=== PATIENT | female | born 1980 | race Caucasian/White ===

== ENCOUNTER 2021-02-04 10:46 | Outpatient (REF) | payer BC, SELFPAY ==
[2021-02-04 14:14] LABS: Alanine Aminotransferase 33 U/L (0-31); Albumin Level 4.3 g/dL (3.5-5.0); Alkaline Phosphatase 56 U/L (39-117); Anion Gap 13 (12-20); Aspartate Amino Transferase 25 U/L (5-31); Bilirubin Total 0.5 mg/dL (0.0-1.0); Blood Urea Nitrogen 10 mg/dL (9-16); Calcium 9.3 mg/dL (8.4-10.2); Carbon Dioxide 27 mmol/L (22-29); Chloride 104 mmol/L (96-108); Cholesterol 217 mg/dL; Estimated Glomerular Filt Rate > 60; Glucose Fasting 102 mg/dL (60-99); HDL Cholesterol 48 mg/dL; LDL Cholesterol Calculated 145 mg/dl; Potassium 4.3 mmol/L (3.3-5.1); Sodium 140 mmol/L (135-145); Triglycerides 124 mg/dL
[2021-02-04 14:35] LABS: TSH reflex Free T4 0.54 uIU/mL (0.32-4.0)
== END 2021-02-04 10:47 | disposition home or self-care (01) ==
LOC: HO.WFDLDS 10:46
PROVIDERS: Visit Provider Family Medicine
DX: Z00.00 Encounter for general adult medical examination without abnormal findings (principal)
CPT/HCPCS: 36415; 80053; 80061; 84443

== ENCOUNTER 2021-02-10 08:06 | Outpatient (REF) | payer BC, SELFPAY ==
--- NOTE | ~2021-02-10 | MM_ITS ---
EXAMINATION: MM SCREENING DIGITAL BREAST TOMOSYNTHESIS, BILATERAL CLINICAL INFORMATION: Screening. Asymptomatic. The lifetime risk of breast cancer based on the Tyrer-Cuzick Model is 22.8%. Additional annual screening with breast MRI may be of benefit in women with a Score of 20% or greater. COMPARISON: Mammography: None TECHNIQUE: Digital breast tomosynthesis is performed in both the craniocaudal and mediolateral oblique views along with computer-aided detection (CAD). Synthesized 2D images are generated from the tomosynthesis. FINDINGS: The breasts are extremely dense, which lowers the sensitivity of mammography (ACR BI-RADS breast composition Category d). There are no significant masses, abnormal calcifications, or other abnormalities. MM/MM tomosynthesis screening BI IMPRESSION: There are no significant changes from prior study. ASSESSMENT: BI-RADS 1: Negative RECOMMENDATION: Routine annual mammography screening. This patient's information was entered into a reminder system with a target due date for their next mammogram.
== END 2021-02-10 08:07 | disposition home or self-care (01) ==
LOC: HO.MAMMO 08:06
PROVIDERS: PCP Family Medicine; Visit Provider Family Medicine
DX: Z12.31 Encounter for screening mammogram for malignant neoplasm of breast (principal)
CPT/HCPCS: 77063; 77067

== ENCOUNTER 2021-07-06 07:58 | Outpatient (REF) | payer BC, SELFPAY ==
[2021-07-06 09:04] LABS: Alanine Aminotransferase 15 U/L (0-31); Albumin Level 4.4 g/dL (3.5-5.0); Alkaline Phosphatase 53 U/L (39-117); Anion Gap 12 (12-20); Aspartate Amino Transferase 16 U/L (5-31); Blood Urea Nitrogen 10 mg/dL (9-16); Calcium 9.6 mg/dL (8.4-10.2); Carbon Dioxide 26 mmol/L (22-29); Chloride 104 mmol/L (96-108); Cholesterol 210 mg/dL; Estimated Glomerular Filt Rate > 60; Glucose Fasting 102 mg/dL (60-99); HDL Cholesterol 53 mg/dL; LDL Cholesterol Calculated 127 mg/dl; Potassium 4.1 mmol/L (3.3-5.1); Sodium 138 mmol/L (135-145); Total Protein 7.2 g/dL (6.5-8.0); Triglycerides 150 mg/dL
== END 2021-07-06 07:59 | disposition home or self-care (01) ==
LOC: HO.LAB 07:58
PROVIDERS: PCP Family Medicine; Visit Provider Family Medicine
DX: Z00.00 Encounter for general adult medical examination without abnormal findings (principal); R74.01 Elevation of levels of liver transaminase levels; E78.00 Pure hypercholesterolemia, unspecified
CPT/HCPCS: 36415; 80053; 80061

== ENCOUNTER 2021-11-08 13:57 | Outpatient (REF) | payer BC, SELFPAY ==
--- NOTE | ~2021-11-08 | XR_ITS ---
EXAMINATION: XR HAND, LEFT CLINICAL INFORMATION: Contusion of left hand COMPARISON: None TECHNIQUE: PA, lateral, and oblique views of the left hand. FINDINGS: The bones and soft tissues are normal. No fracture. Alignment is anatomic. Joint spaces are maintained. No erosions or soft tissue calcifications. XR/XR hand LT min 3V IMPRESSION: Unremarkable left hand.
== END 2021-11-08 13:58 | disposition home or self-care (01) ==
LOC: HO.HMGCX 13:57
PROVIDERS: PCP Family Medicine; Visit Provider Internal Medicine
DX: S60.222A Contusion of left hand, initial encounter (principal)
CPT/HCPCS: 73130

== ENCOUNTER 2022-01-09 10:50 | Outpatient (REF) | payer BC, SELFPAY ==
--- NOTE | ~2022-01-09 | XR_ITS ---
EXAMINATION: XR HAND, LEFT CLINICAL INFORMATION: Left hand pain. COMPARISON: None TECHNIQUE: PA, lateral, and oblique views of the left hand. An indicator arrow points to the fourth distal phalanx. FINDINGS: There is a minimally displaced fracture at the dorsal base of the distal phalanx of the fourth digit extending into the distal interphalangeal joint space. The middle phalanx is intact. Mild adjacent soft tissue swelling is seen. The remainder the digits are intact. XR/XR hand LT min 3V IMPRESSION: Acute, minimally displaced intertrochanteric fracture at the dorsal base of the distal phalanx of the fourth digit.
== END 2022-01-09 10:51 | disposition home or self-care (01) ==
LOC: HO.HOSX 10:50
PROVIDERS: Visit Provider Orthopaedic Surgery
DX: M79.642 Pain in left hand (principal)
CPT/HCPCS: 73130

== ENCOUNTER 2022-01-16 05:49 | Day surgery (SDC) | payer BC, SELFPAY ==
--- NOTE | 2022-01-12 12:35 | HO.ANESPROP2 ---
Documented by User: Pat Charles NP 01/12/22 12:36 HPI - Anesthesia Eval Consult details Narrative: 41yo F for Left Ring Finger P3 FX ORIF PMFSH Active Problems Active Problems: All Active Problems (Updated 01/10/22 @ 15:44 by Yvonne Child MD) Fracture of distal phalanx of left ring finger (Acute) Injury of left ring finger (Acute) Contusion of left hand (Acute) Neoplasm of uncertain behavior of skin (Acute) Lesion of right ear (Acute) Elevated alanine aminotransferase (ALT) level (Acute) Hypercholesterolemia (Acute) Elevated fasting glucose (Acute) Screening for cervical cancer (Acute) Annual physical exam (Acute) Acute adjustment disorder (Acute) Breast cancer screening by mammogram (Acute) Migraine (Acute) Seasonal allergies (Acute) Lymphadenopathy (Acute) Laboratory exam ordered as part of routine general medical examination (Acute) Past Medical History Medical History (Updated 01/10/22 @ 15:44 by Yvonne Child MD) Vertigo Social History Social History (Updated 01/10/22 @ 14:07 by Jeni Trivedi [facility]) Housing: House Patient Tobacco Use Status: Never used Tobacco e-Cigarette/Vaping Use: Never Used Second Hand Smoke Exposure: No Advance Directives: No Advance Directives Information Provided: Yes service: No Current occupational status: employed 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 Current occupational exposures/hazards: No Cognitive needs: No Hearing needs: No Vision needs: No Meds Allergies Allergy/AdvReac Type Severity Reaction Status Date / Time sulfamethoxazole Allergy Unknown UNKNOWN Verified 01/10/22 14:06 [From Bactrim] trimethoprim [From Bactrim] Allergy Unknown UNKNOWN Verified 01/10/22 14:06 Home Medications Medication Instructions Recorded Confirmed Last Taken Type cetirizine 10 mg tablet (Zyrtec) 10 mg PO DAILY PRN 11/08/21 Unknown History Exam Exam Date and Time: January 12, 2022 1235 Pertinent Lab Results Pertinent Lab Results: Laboratory Tests 07/06/21 08:08 Sodium 138 Potassium 4.1 Chloride 104 Carbon Dioxide 26 BUN 10 Creatinine 0.96 Assessment and Plan Assessment Anesthesia Assessment: Chart Reviewed Documented by User: Jak Kent MD 01/16/22 17:53 [facility] Past Medical History Medical History (Updated 01/10/22 @ 15:44 by Yvonne Child MD) Vertigo Functional capacity: independent ambulation Family History Family history of problems with anesthesia: No Surgical History History of Problems with Anesthesia: No Social History Social History (Updated 01/10/22 @ 14:07 by Jeni Trivedi [facility]) Housing: House Patient Tobacco Use Status: Never used Tobacco e-Cigarette/Vaping Use: Never Used Second Hand Smoke Exposure: No Advance Directives: No Advance Directives Information Provided: Yes service: No Current occupational status: employed 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 Current occupational exposures/hazards: No Cognitive needs: No Hearing needs: No Vision needs: No Meds Allergies Allergy/AdvReac Type Severity Reaction Status Date / Time sulfamethoxazole Allergy Unknown UNKNOWN Verified 01/10/22 14:06 [From Bactrim] trimethoprim [From Bactrim] Allergy Unknown UNKNOWN Verified 01/10/22 14:06 Home Medications Medication Instructions Recorded Confirmed Last Taken Type cetirizine 10 mg tablet (Zyrtec) 10 mg PO DAILY PRN 11/08/21 Unknown History Exam Airway Mallampati Class: III TM Dist: >3cm Neck ROM: Full Loose/Missing/Broken Teeth: Yes (Fillings) Heart: S1,S2 Lungs: b/l breath sounds Assessment and Plan Assessment Anesthesia Assessment: Anesthesia Plan Discussed Final Anesthetic Review Family History of Problems with Anesthesia: No History of Problems with Anesthesia: No NPO: Yes ASA Class: II Final Preanesthetic Review: Meds/Allgs Chart Reviewed, Consent Obtained/Reviewed and Anes Risks/Benef Reviewed Patient Risk: Intermediate Procedure Risk: Intermediate Anesthetic Plan Anesthetic Plan: MAC: Disposition: Standard PACU
[2022-01-16] VITALS (11 sets, daily range): BP systolic 104–142; BP diastolic 69–96; PULSE 71–100; RESP 16–18; TEMP 36.2–36.5; O2SAT 94–100; BMI 27.3
--- NOTE | ~2022-01-16 | FL_ITS ---
EXAMINATION: XR FLUOROSCOPY WITH IMAGES CLINICAL INFORMATION: Minimally displaced fracture dorsal base of distal phalanx fourth digit COMPARISON: Right hand 01/10/2022 TECHNIQUE: Fluoroscopy Supervised By: Dr. Danyell Russell Fluoroscopy Time: 29.48 seconds. Cumulative Dose: 0.6585 mGy. DAP: 0.0398 Gycm2. Images: 5. FINDINGS: There is a solitary pin stabilizing the DIP joint fourth digit. Dorsally displaced fracture is again visualized along the DIP joint fourth digit. FL/FL guidance in OR IMPRESSION: Stabilized DIP joint fourth digit with a solitary pin and unchanged dorsal acute fracture at the base of distal phalanx fourth digit.
[2022-01-16 06:27] LABS: UPreg QC Valid YES; Urine Pregnancy NEGATIVE (NEGATIVE)
[2022-01-16] MEDS: Lactated Ringers 1,000 ML 100 ML IVCONT (06:28)
--- NOTE | 2022-01-16 09:44 | P.OP_ITS ---
Operative Note Operative Note Date of Service: 01/16/22 Narrative: Operative Note Narrative: Preop diagnosis: Left ring finger distal phalanx base fracture Postop diagnosis: Same Procedure: left ring finger distal phalanxFracture open reduction internal fixation Surgeon: Yvonne Child MD Anesthesia: General Anesthesia Findings: fracture of dorsal base of distal phalanx Implants: 0.045 K-wire x1 Tourniquet time: 0 minutes, finger tourniquet used for fewer then 30 minutes EBL: 5.0 ml Specimen: none Drains: None Complications: None Disposition: Brought to the recovery room in stable condition Plan: Follow-up in 10-14 days for wound check, suture removal and to check pathology Indications: The patient is a 41 year old woman with fracture through the dorsal base of the left ring finger distal phalanx about 2 months ago with a significant mallet finger . The risks and benefits of operative treatment, including but not limited to risk of damage to blood vessels, nerves, tendons, infection, recurrence, persistent pain or numbness, incomplete resolution of preoperative symptoms, or need for further surgery were discussed with the patient and they wished to proceed with surgery. Procedure: Once consent was obtained patient was brought back to the operating suite and placed in the operating table in a supine position. . Perioperative antibiotics and anesthesia was administered by the anesthesia team. A tourniq uet was applied to the proximal aspect of the left upper extremity and the limb was prepped and draped in a standard surgical fashion. a finger tourniquet was applied to the base of the patient's left ring finger for a total time of few or than 30 minutes. A longitudinal E oriented S shaped incision was made over the dorsal aspect of the patient's left ring finger distal phalanx and D IP joint. The incision was made through the skin to the subcutaneous tissues using a 15. Blade. Careful dissection was then made down to the level of the extensor mechanism using tenotomy scissors. The extensor tendon was found to have healed directly over the fracture at the dorsal base of the distal phalanx. However she was noted to have a mallet finger. The distal phalanx was reduced to an extended position and a 0.045 K-wire was passed retrograde through the tip of the distal phalanx. This was then advanced proximally and retrograde across the D IP joint with the D IP joint held in extension into the shaft of the middle phalanx. Once satisfied with the position of the D IP joint and of this K-wire the pin was bent cut short and had a pin cap applied. I then use some 4-0 Vicryl to draw the bony fragment and its attached extensor mechanism distally. Once satisfied with this on fluoroscopic images final images were obtained. Finger tourniquet was removed and the wound irrigated with normal saline. The skin edges were then reapproximated with some 5 0 Prolene suture. A digital block was performed using some 0.5% plain ropivacaine. A sterile dressing and a volar splint were then applied. The patient appears to have tolerated the procedure well and with no complications. All digits were well vascularized conclusion of the case.
--- NOTE | 2022-01-16 09:44 | MHC.SHP ---
Pre-Procedural Eval Section A Date of Service: 01/16/22 The patient is an INPATIENT: No Changes since office visit: No Cold of Flu in the past 2 weeks, No New Medical Problems, No Changes in Medication and No Patient answered all questions The History & Physical has been completed within 30 days and I have reviewed it.: Yes Section B Chief Complaint: Mallet finger of left finger(s) Allergies: Allergies Allergy/AdvReac Type Severity Reaction Status Date / Time sulfamethoxazole Allergy Unknown UNKNOWN Verified 01/10/22 14:06 [From Bactrim] trimethoprim [From Bactrim] Allergy Unknown UNKNOWN Verified 01/10/22 14:06 Plan I have reviewed the history and physical and performed a pertinent physical examination on my patient. No changes have occurred unless specified.
== END 2022-01-16 12:10 | disposition home or self-care (01) ==
PROVIDERS: Nurse Practitioner; PCP Family Medicine; Visit Provider Orthopaedic Surgery
PROC: (CPT 26765; principal; 2022-01-16 07:30)
DX: S62.635A Displaced fracture of distal phalanx of left ring finger, initial encounter for closed fracture (principal); M20.012 Mallet finger of left finger(s); W20.8XXA Other cause of strike by thrown, projected or falling object, initial encounter; Y93.61 Activity, american tackle football; Y92.9 Unspecified place or not applicable; Y99.8 Other external cause status; R42 Dizziness and giddiness; Z88.2 Allergy status to sulfonamides; Z88.8 Allergy status to other drugs, medicaments and biological substances
CPT/HCPCS: 26765; 81025; J0690; J1100; J1170; J2250; J2405; J2550; J2795; J3010

== ENCOUNTER 2022-01-30 11:07 | Outpatient (REF) | payer BC, SELFPAY | END 2022-01-30 11:08 | disposition home or self-care (01) | LOC: HO.HOSX 11:07 | PROVIDERS: Visit Provider Orthopaedic Surgery | DX: Z13.89 Encounter for screening for other disorder (principal) ==

== ENCOUNTER 2022-01-31 10:24 | Outpatient (REF) | payer BC, SELFPAY | END 2022-01-31 10:25 | disposition home or self-care (01) | LOC: HO.HOSX 10:24 | PROVIDERS: Visit Provider Orthopaedic Surgery | DX: Z13.89 Encounter for screening for other disorder (principal) ==

== ENCOUNTER 2022-02-01 16:21 | Outpatient (REF) | payer BC, SELFPAY ==
--- NOTE | ~2022-02-01 | XR_ITS ---
EXAMINATION: XR HAND, LEFT CLINICAL INFORMATION: Left hand pain COMPARISON: 01/10/2022 TECHNIQUE: PA, lateral, and oblique views of the left hand. FINDINGS: A K wire bridges the 4th DIP joint. The joint is narrowed. Again demonstrated is ossification at the dorsal lip of the base of the distal phalanx. No additional findings. XR/XR hand LT min 3V IMPRESSION: K wire bridges the 4th DIP joint. The joint is narrowed.
== END 2022-02-01 16:22 | disposition home or self-care (01) ==
LOC: HO.HOSX 16:21
PROVIDERS: Visit Provider Orthopaedic Surgery
DX: M79.642 Pain in left hand (principal)
CPT/HCPCS: 73130

== ENCOUNTER 2022-02-03 10:55 | Outpatient (REF) | payer BC, SELFPAY ==
[2022-02-08 11:58] LABS: HPV mRNA E6/E7 rflx Not Detected (Not Detected)
== END 2022-02-03 10:56 | disposition home or self-care (01) ==
LOC: HO.LNP 10:55
PROVIDERS: Visit Provider Advanced Practice Midwife
DX: Z01.419 Encounter for gynecological examination (general) (routine) without abnormal findings (principal); Z11.51 Encounter for screening for human papillomavirus (HPV)
CPT/HCPCS: 87624; 88142

== ENCOUNTER 2022-02-16 08:15 | Outpatient (REF) | payer BC, SELFPAY ==
--- NOTE | ~2022-02-16 | MM_ITS ---
EXAMINATION: MM SCREENING DIGITAL BREAST TOMOSYNTHESIS, BILATERAL CLINICAL INFORMATION: Screening. Asymptomatic. The lifetime risk of breast cancer based on the Tyrer-Cuzick Model is 23.2%. Additional annual screening with breast MRI may be of benefit in women with a score of 20% or greater. COMPARISON: Mammography: 02/10/2021 TECHNIQUE: Digital breast tomosynthesis was performed in both the craniocaudal and mediolateral oblique views along with computer-aided detection (CAD). Synthesized 2D images were generated from the tomosynthesis. FINDINGS: The breasts are extremely dense, which lowers the sensitivity of mammography (ACR BI-RADS breast composition Category d). There is a stable parenchymal pattern of the right breast. Within the deep medial aspect of the left breast on the craniocaudal view, there is a 6 mm density approximately 11 cm from the nipple which was not seen on the prior study. Spot compression view and possible ultrasound are recommended. By tomography, this should lie within the inferior aspect of the left breast. On the mediolateral oblique view, there is a density measuring approximately 5 mm in diameter 15 cm from the nipple, which may represent a lymph node, but no definite fatty cleft is seen and this was not noted on the previous study. Recommend spot compression view and possible ultrasound. MM/MM tomosynthesis screening BI IMPRESSION: Left breast findings for further evaluation as described. ASSESSMENT: BI-RADS 0: Incomplete - Need Additional Imaging Evaluation RECOMMENDATION: 1. Additional views of the left breast. 2. Targeted ultrasound if warranted after review of the additional views. 3. Radiology department staff will contact the patient for additional imaging.
== END 2022-02-16 08:16 | disposition home or self-care (01) ==
LOC: HO.MAMMO 08:15
PROVIDERS: PCP Family Medicine; Visit Provider Family Medicine
DX: Z12.31 Encounter for screening mammogram for malignant neoplasm of breast (principal)
CPT/HCPCS: 77063; 77067

== ENCOUNTER 2022-02-22 | Outpatient (REF) | payer BC, SELFPAY ==
--- NOTE | ~2022-02-22 | XR_ITS ---
EXAMINATION: XR HAND, LEFT CLINICAL INFORMATION: Pain COMPARISON: X-ray 02/02/2022, 01/10/2022 TECHNIQUE: PA, lateral, and oblique views of the left hand. FINDINGS: Redemonstrated is a K wire bridging the fourth DIP joint. Redemonstrated is a small ossification at the dorsal aspect of the base of the distal phalanx. No new acute fractures seen. XR/XR hand LT min 3V IMPRESSION: K wire bridges the fourth DIP joint. Appearance similar as compared to previous.
== END 2022-02-22 00:01 | disposition home or self-care (01) ==
LOC: HO.HOSX
PROVIDERS: Visit Provider Orthopaedic Surgery
DX: Z13.89 Encounter for screening for other disorder (principal)

== ENCOUNTER → 2022-02-22 10:20 | Outpatient (BNVA) | payer BC, SELFPAY | PROVIDERS: PCP Family Medicine; Visit Provider Orthopaedic Surgery | DX: S62.635D Displaced fracture of distal phalanx of left ring finger, subsequent encounter for fracture with routine healing (principal) | CPT/HCPCS: 73130 ==

== ENCOUNTER 2022-02-23 08:53 | Outpatient (REF) | payer BC, SELFPAY ==
--- NOTE | ~2022-02-23 | MM_ITS ---
EXAMINATION: MM DIAGNOSTIC DIGITAL BREAST TOMOSYNTHESIS, LEFT US DIAGNOSTIC ULTRASOUND BREAST, LEFT CLINICAL INFORMATION: Recall from screening for 2 findings, small asymmetric density posterior medial left breast on CC view and nodular density left axilla. COMPARISON: Mammography: 02/16/2022, 02/10/2021 (baseline). TECHNIQUE: Digital breast tomosynthesis is performed. 2D images are generated from the tomosynthesis. The following views are obtained: Exaggerated left CC, spot left CC x3, spot left MLO. Ultrasound left breast is targeted to the posterior medial breast 6:00 through 11:00 position. In addition, ultrasound of the axilla and posterior upper outer quadrant is performed. Grayscale imaging and color Doppler are performed without and with harmonics. FINDINGS: The breasts are heterogeneously dense, which may obscure small masses (ACR BI-RADS breast composition Category c). Additional spot view left axilla shows scattered nodes with benign rani architecture. The nodule for follow-up was beyond field of view on the initial baseline exam 2020. No suspicious finding. Additional views posterior medial left breast show benign-appearing asymmetric density possibly related to sternalis muscle. This area is also beyond the [id number] on the initial baseline mammography 2020. Ultrasound left breast upper outer quadrant show scattered incidental nodes with normal rani architecture. No cystic or solid mass or architectural abnormality. Ultrasound posterior medial left breast shows no cystic or solid mass or architectural abnormality. The chest wall soft tissues appear normal. Results are discussed with the patient at time of visit. There is no suspicious finding. The axilla is unremarkable. The finding posterior medial left breast was previously beyond field of view and may represent sternalis muscle artifact. As a precaution, short interval follow-up left mammography will be performed in 6 months. MM/MM tomosynthesis added views L IMPRESSION: -Unremarkable axilla and posterior upper outer left breast. -Benign-appearing asymmetric density posterior medial breast on CC view, possibly sternalis muscle. -No suspicious finding on targeted ultrasound. ASSESSMENT: BI-RADS 3: Probably Benign RECOMMENDATION: Diagnostic left mammography in 6 months. This patient's information was entered into a reminder system with a target due date for their next mammogram.
== END 2022-02-23 08:54 | disposition home or self-care (01) ==
LOC: HO.MAMMO 08:53
PROVIDERS: PCP Family Medicine; Visit Provider Family Medicine
DX: R92.2 Inconclusive mammogram (principal)
CPT/HCPCS: 76642; 77061; 77065

== ENCOUNTER 2022-08-25 13:54 | Outpatient (REF) | payer BC, SELFPAY ==
--- NOTE | ~2022-08-25 | MM_ITS ---
EXAMINATION: MM DIAGNOSTIC DIGITAL BREAST TOMOSYNTHESIS, LEFT CLINICAL INFORMATION: Density deep medial aspect left breast. The lifetime risk of breast cancer based on the Tyrer-Cuzick Model is 23%. COMPARISON: 02/23/2022 and studies dating back to 02/10/2021. TECHNIQUE: Digital breast tomosynthesis is performed in both the craniocaudal and mediolateral oblique views along with computer-aided detection (CAD). Synthesized 2D images are generated from the tomosynthesis. FINDINGS: The breasts are extremely dense, which lowers the sensitivity of mammography (ACR BI-RADS breast composition Category d). There are no significant masses, abnormal calcifications, or other abnormalities. The density about the deep medial aspect of the left breast is not identified. The density about the axilla is stable and has the appearance of a probable lymph node. Results are provided to the patient at time of visit by the technologist. MM/MM tomosynthesis diagnostic LT IMPRESSION: There are no significant changes from prior study. ASSESSMENT: BI-RADS 3: Probably Benign RECOMMENDATION: Diagnostic mammography at time of next annual exam, due in 6 months. This patient's information was entered into a reminder system with a target due date for their next mammogram.
== END 2022-08-25 13:55 | disposition home or self-care (01) ==
LOC: HO.MAMMO 13:54
PROVIDERS: PCP Family Medicine; Visit Provider Family Medicine
DX: R92.2 Inconclusive mammogram (principal)
CPT/HCPCS: 77061; 77065

== ENCOUNTER 2023-02-09 08:54 | Outpatient (AMB) | payer BC, SELFPAY ==
[2023-02-09 09:03] VITALS: BP 132/92; BMI 27.6
--- NOTE | 2023-02-09 09:03 | MHC.OFFVIS ---
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 Patient states she was told last year that she doesn't need a vaginal exam. 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 Her primary care provider is now Dr. Marquez because her previous one changed positions. She said she has seen him and discussed her elevated blood pressure and is working on all of the recommendations and checking her blood pressure at home and trying to eat well and she and her family do not add much salt to food and she and her are trying to make sure they get enough exercise. 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 She sometimes wonders if she is princess menopausal in that she used to have extremely regular periods almost to the hour and they have started to be either a little bit late or little bit early sometimes she does get hot flashes. She has absolutely no worries about STIs and declines an exam and she has never had an abnormal Pap smear and her last 1 was negative last year with negative HPV. She is getting every 6 month follow-up mammograms at this point because there was 1 tiny area in her right lower breast that was being watched. But it was not deemed to be sufficient for any biopsy but her next mammogram is on the of this month. She herself had consulted with Dr. Lopez in the past because of her mother's breast cancer. Her mother has breast cancer but apparently it was not the type that was genetic and she believes her mother comes here for follow-up with Dr. Wylie and if there is anything to follow-up on that is who she would see. She works full-time she and her have two teenage daughters aged 16 and 13 who are doing well. 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 Current occupational exposures/hazards: No Sexual orientation: Straight/Heterosexual Gender identity: Female Cognitive needs: No Hearing needs: No Vision needs: No Female Reproductive History Menstrual Age of Menarche: 11 Duration of menses: other Date of last menstrual period: 02/04/23 control method: none and permanent sterilization Permanent Sterilization: Vasectomy Total pregnancies: 2 Full term: 2 Number of Living Children: 2 Date of last pap smear: 02/06/22 (negative) History of abnormal pap smear: No Date of Mammogram: 08/25/22 Physical Exam Vital Signs: Last Vital Signs BP 132/92 H 02/09/23 09:03 BMI result Body Mass Index 27.6 Const General: healthy appearing, comfortable, no acute distress, well developed and alert Nutritional Appearance: average body habitus Orientation/consciousness: patient oriented x3 Limitations: no limitations HEENT Head: Yes normocephalic Neck Neck: Yes normal visual inspection Thyroid: Thyroid normal Chest Chest palpation & inspection: normal inspection of the chest Breast/axilla inspection: normal inspection of the breasts and normal inspection of the axillae Breast/axilla palpation: normal palpation of the breasts and normal palpation of the axillae Resp Effort & Inspection: normal respiratory effort GI Inspection: Yes normal to inspection, No Abdominal wall edema and No distended Palpation (GI): Soft to palpation and nontender External Female Exam: normal external appearance Neuro General: patient oriented x3 Assessment & Plan Assessment & Plan (1) Cervical cancer screening: Comment: 02/03/2022 Pap is negative with negative HPV. Code(s): Z12.4 - Encounter for screening for malignant neoplasm of cervix (2) Well woman exam (no gynecological exam): Code(s): Z00.00 - Encounter for general adult medical examination without abnormal findings (3) Family history of breast cancer in first degree relative: Comment: Currently getting Q 6 month mammograms... Code(s): Z80.3 - Family history of malignant neoplasm of breast (4) Elevated blood pressure reading: Code(s): R03.0 - Elevated blood-pressure reading, without diagnosis of hypertension Plan -----Discussed in this visit the following: healthy balanced diet, regular and consistent exercise, getting recommended health screens, doing the best she can for her particular health concerns, kegel exercises, pap smear screening and followup recommendations, mammography screening and SBE, normal changes in cycles in her life stage--- . Reviewed her breast cancer risk and screening and she is going to follow what ever advice she is given after the mammogram discussed that if there were anything abnormal she probably would be referred to Dr. Wylie who she believes her mother goes to. She does breast exam herself. She and the family are working towards best health with healthy eating and minimal salt and exercise and healthy activity> her next Pap smear will be 5 years from the last 1. Discussed trying to moderate weight and that will possibly help Blood pressure as well.. Also reviewed that while periods becoming slightly more irregular may be a sign of princess menopausal symptoms it is more likely a reflection of the weight gain over time even though it is subtle and that losing weight may help with that as well. Discussed the range of princess menopausal symptoms and what to expect going forward. We will see her in 1 year. Coding Level of Care Code Est Pt Prev Care 40-64y(57854) Diagnoses Cervical cancer screening Z12.4 Well woman exam (no gynecological exam) Z00.00 Family history of breast cancer in first degree relative Z80.3 Elevated blood pressure reading R03.0
== END 2023-02-09 09:45 | disposition home or self-care (01) ==
LOC: HO.HWS 08:54
PROVIDERS: PCP Family Medicine; Visit Provider Advanced Practice Midwife
DX: Z01.419 Encounter for gynecological examination (general) (routine) without abnormal findings (principal); Z80.3 Family history of malignant neoplasm of breast; R03.0 Elevated blood-pressure reading, without diagnosis of hypertension
CPT/HCPCS: 99396

== ENCOUNTER → 2023-02-09 08:54 | Outpatient (BNVA) | payer BC, SELFPAY | PROVIDERS: PCP Family Medicine; Visit Provider Advanced Practice Midwife ==

== ENCOUNTER 2023-02-23 09:26 | Outpatient (REF) | payer BC, SELFPAY ==
--- NOTE | ~2023-02-23 | MM_ITS ---
EXAMINATION: MM SCREENING DIGITAL BREAST TOMOSYNTHESIS, BILATERAL CLINICAL INFORMATION: Six-month follow-up for nodular asymmetry far posterior far medial left breast, followed since 02/16/2022. COMPARISON: Mammography: 08/25/2022, 02/23/2022, 02/16/2022. TECHNIQUE: Digital breast tomosynthesis is performed in both the craniocaudal and mediolateral oblique views along with computer-aided detection (CAD). Synthesized 2D images are generated from the tomosynthesis. In addition a CC exaggerated medially was performed. FINDINGS: The breasts are heterogeneously dense, which may obscure small masses (ACR BI-RADS breast composition Category c). The small nodular oval asymmetry in the far medial far posterior left breast cannot definitively be imaged in full due to its far posterior position, although is stable in size and morphology when compared with prior exams, and is probably benign. Mammographic follow-up recommended in one year. Otherwise, there are no suspicious masses, suspicious grouped calcifications, or areas of architectural distortion in either breast. The parenchymal pattern is stable from prior exams. Stable benign appearing axillary lymph nodes. No skin changes. MM/MM tomosynthesis screening BI IMPRESSION: No mammographic evidence of malignancy in either breast. Small nodular oval asymmetry in the far medial far posterior left breast is probably benign, and 1 year follow-up recommended. No suspicious findings in the right breast. ASSESSMENT: BI-RADS BI-RADS 3 - Probably benign finding(s) - 12 month follow-up suggested RECOMMENDATION: 12 month diagnostic follow up This examination should not preclude the clinical evaluation of a suspicious palpable abnormality. This patient's information was entered into a reminder system with a target due date for their next mammogram.
== END 2023-02-23 09:27 | disposition home or self-care (01) ==
LOC: HO.MAMMO 09:26
PROVIDERS: PCP Family Medicine; Visit Provider Family Medicine
DX: Z12.31 Encounter for screening mammogram for malignant neoplasm of breast (principal)
CPT/HCPCS: 77063; 77067

== ENCOUNTER → 2023-02-23 09:30 | Outpatient (BNV) | payer BC, SELFPAY | PROVIDERS: PCP Family Medicine; Visit Provider Radiology Diagnostic Radiology | DX: Z12.31 Encounter for screening mammogram for malignant neoplasm of breast (principal) | CPT/HCPCS: 77063; 77067 ==

== ENCOUNTER 2024-02-21 09:21 | Outpatient (REF) | payer BC, SELFPAY ==
--- NOTE | ~2024-02-21 | MM_ITS ---
EXAMINATION: MM DIAGNOSTIC DIGITAL BREAST TOMOSYNTHESIS, BILATERAL CLINICAL INFORMATION: Two-year follow-up for asymmetry in the medial left breast far posterior depth only seen on CC view without prior sonographic correlate. COMPARISON: Mammography: Comparison is made with relevant prior exams. TECHNIQUE: Digital breast mammography with tomosynthesis is performed in both the craniocaudal and mediolateral oblique views along with computer-aided detection (CAD). FINDINGS: The breasts are heterogeneously dense, which may obscure small masses (ACR BI-RADS breast composition Category c). Previously seen asymmetry in the medial left breast posterior depth on CC view has not significantly changed from prior imaging for 2 years and therefore benign. There are no significant masses, abnormal calcifications, or other abnormalities. Results are provided to the patient at time of visit by the technologist. MM/MM tomosynthesis diagnostic BI IMPRESSION: Right: Negative. Left: Asymmetry in the medial left breast posterior depth on CC view without prior sonographic correlate which is not significantly changed on prior mammogram imaging projections for 2 years and therefore benign. ASSESSMENT: BI-RADS BI-RADS 2 - Benign Findings RECOMMENDATION: 1 year F/U This patient's information was entered into a reminder system with a target due date for their next mammogram. Electronically signed by: Isa Youssef DO 02/21/2024 10:08 AM [place]
== END 2024-02-21 09:22 | disposition home or self-care (01) ==
LOC: HO.MAMMO 09:21
PROVIDERS: PCP Family Medicine; Visit Provider Family Medicine
DX: N64.89 Other specified disorders of breast (principal)
CPT/HCPCS: 77062; 77066

== ENCOUNTER → 2024-02-21 09:30 | Outpatient (BNV) | payer BC, SELFPAY | PROVIDERS: PCP Family Medicine; Visit Provider Internal Medicine | DX: R92.333 Mammographic heterogeneous density, bilateral breasts (principal); R92.2 Inconclusive mammogram | CPT/HCPCS: 77062; 77066 ==

== ENCOUNTER 2025-03-04 07:29 | Outpatient (REF) | payer BC, SELFPAY ==
--- OUTSIDE RECORDS SUMMARY | 2021-01-14 11:43 | XMS_ITS | Encounter Summary ---
Author Organization [facility] Address [address] [place] [address] [place] [phone] Phone Care Team Providers Care Cad Technician Name Role Phone Pcp, Unknown Primary Care Provider Unavailabl e Encounter Details Date Type Department Care Team (Late st Contact Info) Description 01/14/2021 11:43 AM EST Hospital Encounter [facility] [address] [place] [id number] Hailey Manzanares PA [address] [phone] [email or web address] Social History Tobacco Use Types Packs/Day Years Used Date Smoking Tobacco: Former Smokeless Tobacco: Never Alcohol Use Standard Drinks/Week Comments Yes 0 (1 standard drink = 0.6 oz pur e alcohol) Occasionally Education Answer Date Recorded Are you interested in more education? Not on mali e 07/01/2022 Are you concerned about learning? Not on file 07/01/2022 No 07/01/2022 No 07/01/2022 Digital Access Answer Date Recorded No 07/30/2022 No 07/30/2022 Reliable internet access at home? Not on file 07/30/2022 Device with a working camera? Not on file Comments Unknown Sex and Gender Information Value Date Recorded Sex Assigned at Female 01/14/2021 10:05 AM EST Legal Sex Female 8:43 AM EST Gender Identity Female 01/14/2021 10:05 AM EST Sexual Orientation Straight 01/14/2021 10 :05 AM EST documented as of this encounter Plan of Treatment Not on file documented as of this encounter Procedures Procedure Name Priority Date/Time Associated Diagnosis Comments XR FOOT 3 OR MORE VIEWS (LEFT) Urgent/patient waiting 01/14/2021 11:52 AM EST Foot sprain, left, initial encounter documented in this encounter Results * XR FOOT 3 OR MORE VIEWS (LEFT) (01/14/2021 11:52 AM EST) Anatomical Region Laterality Modality Foot Left Computed Radiogr aphy 01/14/2021 12:2 8 PM EST Impressions 01/14/2021 12:28 PM EST No fracture or dislocation. Narrative 01/14/2021 12:28 PM EST XR FOOT 3 OR MORE VIEWS (LEFT) COMPARISON: None. FINDINGS: No fracture. Normal alignment. Normal joint spaces. No soft tissue swelling. Procedure Note Etta Polanco MD - 01/14/2021 XR FOOT 3 OR MORE VIEWS (LEFT) COMPARISON: None. FINDINGS: No fracture. Normal alignment. Normal joint spaces. No soft tissueswelling. IMPRESSION: No fracture or dislocation. Hailey LIMA IMG XR LOWER EXTREMITY Final Result documented in this encounter Visit Diagnoses Not on filedocumented in this encounter Care Teams Cad Technician Relationship Specialty Start Date End Date Pcp, Unknown PCP - General 01/14/21 07/21/21 documented as of this encounter Additional Source Comments The information contained in this document represents components of the legal health record. It is not the complete legal health record.[facility]
--- NOTE | ~2025-03-04 | MM_ITS ---
EXAMINATION: MM SCREENING DIGITAL BREAST TOMOSYNTHESIS, BILATERAL CLINICAL INFORMATION: Screening. Asymptomatic. COMPARISON: Mammography: Comparison is made with available priors TECHNIQUE: Digital breast mammography with tomosynthesis is performed in both the craniocaudal and mediolateral oblique views along with computer-aided detection (CAD). FINDINGS: The breasts are extremely dense, which lowers the sensitivity of mammography. Left: Asymmetry retroareolar region slightly medial breast posterior depth on CC view. This is a different area from the prior asymmetry followed on mammography. No suspicious calcifications or other abnormal findings. Right: There are no significant masses, abnormal calcifications, or other abnormalities. MM/MM tomosynthesis screening BI IMPRESSION: Additional imaging is recommended Patient has extremely dense breast tissue and a family history of breast cancer including patient's mother. Breast MRI screening surveillance should be considered for further evaluation. Breast MRI needs to be ordered by the patient's providing clinician. ASSESSMENT: BI-RADS Category 0: Incomplete - Need additional Imaging Evaluation RECOMMENDATION: 1. Additional views of the left breast. 2. Targeted ultrasound if warranted after review of the additional views. 3. Radiology department staff will contact the patient for additional imaging. Additional Imaging required Electronically signed by: Isa Youssef DO 03/06/2025 03:45 PM EST
--- OUTSIDE RECORDS SUMMARY | 2025-03-04 07:33 | XMS_ITS | Clinical Summary ---
Author Organization [facility] Address [address] [place] [id number] Phone Care Team Providers Care Secretary Name Role Phone Kamran Marquez MD Primary Care Provider Allergies Active Allergy Reactions Criticality Noted Date Comments Sulfamethoxazole-Trimethoprim Hives 2021 Medications methylPREDNISol one (MEDROL DOSEPACK) 4 mg tablet follow package directions 21 tablet Active Additional Information Patient not taking.Reported on 12/29/2022 cetirizine (ZYRTEC) 10 MG tablet Take 10 mg by mouth daily. Active Active Problems No known active problems Immunizations Immunization Administration Dates Next Due INFLUENZA, SPLIT VIRUS, TRIVALENT W/ PRESERVATIV E IM 12/29/2015 Influenza Quadrivalent Preservative Free IM 01/03 Influenza Quadrivalent w/ Preservative IM 2017 Tdap 03/30/2015 Social History Tobacco Use Types Packs/Day Years Used Date Smoking Tobacco: Former Smokeless Tobacco: Never Tobacco Cessation:Counseling Given: Not Answered Alcohol Use Standard Drinks/Week Comments Yes 0 [...] Orientation Straight 01/14/2021 10 :05 AM EST Last Filed Vital Signs Vital Sign Reading Time Taken Comments Blood Pressure 132/78 12/29/2022 3:21 PM EDT Pulse 92 12/29/2022 2:20 PM EDT Temperature 37 C (98.6 F) 12/29/2022 2:20 PM EDT Respiratory Rate 16 12/29/2022 2:20 PM EDT Oxygen Saturation 100% 12/29/2022 2:20 PM EDT Inhaled Oxygen Concentration - - Weight 79.4 kg (175 lb) 12/29/2022 2:20 PM EDT p er pt Height 170.2 cm (5' 7 ) 07/22/2021 12:09 PM EDT Body Mass Index 27.41 07/22/2021 12:09 PM EDT Plan of Treatment Health Maintenance Due Date Last Done Comments LIPID PANEL 1979 DEPRESSION SCREENING 1991 SMOKING Hx and SMOKELESS TOBACCO SCREENING 11/18/1992 HEPATITIS C SCREENING 11/18/1997 HIV ONE-TIME SCREENING (18-65 YEARS) 11/18/1997 PAP SMEAR 11/18/2000 SCREENING FOR DIABETES 11/18/2014 MAMMOGRAM 2019 INFLUENZA VACCINE (#1) 2024 2, 01/21/2020, 01/08/2018, Additional history exists COVID-19 VACCINE ( season) 2024 01/30/2021, 07/06/2020, 06/15/2020 COLOGUARD 11/18/2024 COLONOSCOPY 11/18/2024 COLORECTAL CANCER SCREENING 11/18/2024 FIT TEST 11/18/2024 FOBT 11/18/2024 SIGMOIDOSCOPY 11/18/2024 VIRTUAL COLONOSCOPY 11/18/2024 Adult Td,Tdap Booster 03/30/2025 03/30/2015 HEPATITIS A VACCINES Aged Out No long er eligible based on patient's age to complete this topic HIB VACCINES Aged Out No longer eligi ble based on patient's age to complete this topic MENINGOCOCCAL VACCINES (ACWY) Aged Out No longer eligible based on patient's age to complete this topic MENINGOCOCCAL VACCINES (B) Aged Out N o longer eligible based on patient's age to complete this topic PNEUMOCOCCAL VACCINES (0-49 years) Aged Out No longer eligible based on patient's age to complete this topic Medical Devices Not on file [place] [address] [address] OUT [facility] [place] [address] [place] [address] [place] [address] [place] [address] OUT [facility] OUT [facility] PPO [facility] OUT [facility] PPO [employer] OUT OF STATE [place] [id number] BLUE [place] OUT OF STATE PPO [facility] OUT [facility] PPO [facility] OUT [facility] PPO Care Teams Secretary Relationship Specialty Start Date End Date Kamran Marquez MD PCP - General Family Medicine 07/22/21 Additional Source Comments The information contained in this document represents components of the legal health record. It is not the complete legal health record.[facility]
== END 2025-03-04 07:30 | disposition home or self-care (01) ==
LOC: HO.MAMMO 07:29
PROVIDERS: PCP Family Medicine; Visit Provider Family Medicine
DX: Z12.31 Encounter for screening mammogram for malignant neoplasm of breast (principal)
CPT/HCPCS: 77063; 77067

== ENCOUNTER → 2025-03-04 07:30 | Outpatient (BNV) | payer BC, SELFPAY | PROVIDERS: PCP Family Medicine; Visit Provider Internal Medicine | DX: Z12.31 Encounter for screening mammogram for malignant neoplasm of breast (principal) | CPT/HCPCS: 77063; 77067 ==